=== PATIENT | male | born 1965 | race Caucasian/White ===

== ENCOUNTER 2016-10-27 09:04 | Emergency (ER) | payer OTHER ==
--- NOTE | 2016-10-27 16:05 | NUR ---
Received call from ER stating pt needs help. Pt was evaluated by PT. Pt states he just wants a wheelchair for home use. States his friends will carry him into the house. SWS faxed demographic and order for wheelchair to [facility]. Deny need for HHC.
--- NOTE | 2016-10-28 07:28 | CO ---
ADMIT: 10/27/2016 RM/LOC: ER [facility] MR#: [id number] [address] RENATE LOZOYA [address] [place] [address] Consultation SEX: M AGE: 51 : 1965 DATE OF CONSULTATION: 10/27/2016 ATTENDING PHYSICIAN: Coleman Carter CONSULTING PHYSICIAN: Ankur Rodrigues MD CHIEF COMPLAINT: Bilateral foot pain. HISTORY: A 51-year-old male, he fell off a ladder today. He has a lot of pain and swelling in his feet. He had x-rays confirming bilateral calcaneus fractures. No other major issues. No other medical problems. REVIEW OF SYMPTOMS: Otherwise negative. PAST MEDICAL HISTORY: Negative for diabetes. No smoking. Otherwise noncontributory. OBJECTIVE: He is awake, alert, and oriented, in no acute distress. Afebrile. Vital signs are stable. He is able to wiggle all of his toes. Sensation intact to light touch. Brisk capillary refill. He has a lot of swelling with a negative wrinkle sign bilaterally in his feet. X-rays, he has comminuted depressed calcaneus fractures bilaterally. ASSESSMENT: This 51-year-old male, bilateral calcaneus fractures. PLAN: Get a CT scans today before he leaves the ER. Put him into a bulky Rush splint bilaterally and I will have him follow up with Edwin JOSHI at [facility]. I have spoke with Lupillo Pineda and he said that he would be able to see him in clinic and evaluate him next week. I also gave him strict instructions for nonweightbearing, he elevate his legs as much as possible, keep his toes moving, and ice it down as much so we can get swelling down as quickly as possible before he sees Dr. Pineda. Also recommended an aspirin daily and pain medicine. Ankur Rodrigues MD/ kevin JOB #: [id number] CC: Coleman Carter, Attending Physician Alcira Albarado, Family Physician
--- NOTE | 2016-11-02 16:06 | ER ---
ADMIT: 10/27/2016 RM/LOC: [facility] MR#: [id number] [place], [place] [id number] [place] [address] Emergency Room Report SEX: M AGE: 51 : 1965 DATE: 10/27/2016 HISTORY OF PRESENT ILLNESS: Mr. Lozoya is a 51-year-old male, who was working today and fell from a ladder landed on his feet, swelling on bilateral ankles. REVIEW OF SYSTEMS: Negative. PAST MEDICAL HISTORY: Negative. IMMUNIZATIONS: Up-to-date. MEDICATION: He takes no medications on regular basis. ALLERGIES: HE IS ALLERGIC TO PENICILLIN. SOCIAL HISTORY: He drinks alcohol occasionally. PHYSICAL EXAMINATION: VITAL SIGNS: Blood pressure 131/68, with a heart rate of 64, respirations 16, temp is 96.9. GENERAL: He is alert, but moderately anxious. HEAD: Normocephalic and atraumatic. NECK: Supple. ABDOMEN: Nontender. SKIN: Warm and dry and intact. EXTREMITIES: Foot; see diagram in the T-sheet. There is some deformity at the bottom of his bilateral feet. Swelling in the ankles. He is unable to bear weight. NEUROLOGICAL: He is intact. VASCULAR: No compromise. LABORATORY DATA: No labs were done at this time. HOSPITAL COURSE: X-ray of the ankle and bilateral calcaneus shows bilateral ADMIT: 10/27/2016 RM/LOC: [facility] MR#: [id number] [address] [place], [place] [id number] [address] [place] [address] Emergency Room Report SEX: M AGE: 51 : 1965 ankle avulsion fracture fragment adjacent to the bilateral lateral malleolus, comminuted bilateral calcaneus fracture, soft tissue swelling about the bilateral ankles. Dr. Rodrigues, Orthopedics was contacted, he consulted and came into the emergency room to see patient and he ordered some CT to view the injury. He consulted with another Orthopedic doctor Dr. Pineda and he also put a splint on the patient's feet. The patient will be followed by Dr. Pineda in the future. The swelling really has to come down. Physical therapy was contacted per group social worker request. He will be evaluated and see what they needed at home for assistance. The patient will be discharged with instructions and medication for pain control. He is stable. IMPRESSION: Fractured heel bilaterally secondary to fall. JONG Ward / Coleman Carter MD / kevin JOB #: [id number] CC: Coleman Carter MD, Attending Physician Alcira Albarado MD, Family Physician
[2016-11-19] MEDS ORDERED: PERCOCET 10 DPS1 TAB PO (14:02)
[2016-11-19] MEDS ORDERED: LOVENOX DP40 MG/0.4 SQ (14:02)
[2016-11-19] MEDS ORDERED: PROVENTIL HFA6.7 GM IH (14:03)
== END 2016-10-27 19:40 | disposition home or self-care (01) ==
LOC: ER 09:04
PROC: 2W3LX1Z Immobilization of Right Lower Extremity using Splint (ICD-10-PCS; principal; 2016-10-27)
PROC: 2W3MX1Z Immobilization of Left Lower Extremity using Splint (ICD-10-PCS; principal; 2016-10-27)
DX: S92.002A Unspecified fracture of left calcaneus, initial encounter for closed fracture (principal); S92.001A Unspecified fracture of right calcaneus, initial encounter for closed fracture; Z88.0 Allergy status to penicillin; W11.XXXA Fall on and from ladder, initial encounter; Y92.69 Other specified industrial and construction area as the place of occurrence of the external cause

== ENCOUNTER 2016-11-17 06:59 | Observation (INO) | payer OTHER ==
[~2016-11-17] VITALS: Ht 185.4 cm; Wt 104.1 kg
--- NOTE | 2016-11-18 09:19 | OR ---
ADMIT: 11/17/2016 RM/LOC: [address] [facility] MR#: [id number] [address] RENATE LOZOYA [address] [place] [address] Operative/Delivery Room Report SEX: M AGE: 51 : 1965 SURGERY DATE: 11/17/2016 SURGEON: Glen Pineda DPM FRONT OFFICE SPEC: None. PREOPERATIVE DIAGNOSIS: Bilateral calcaneal fracture. POSTOPERATIVE DIAGNOSIS: Bilateral calcaneal fracture. PROCEDURE: Open reduction with internal fixation of bilateral calcaneal fracture. PATHOLOGY: None. ANESTHESIA: General. HEMOSTASIS: Pneumatic thigh tourniquet inflated to 300 mmHg. ESTIMATED BLOOD LOSS: 20 mL. MATERIALS USED: Two perimeter lateral locking plates with accompanying 3.5 nonlocking and locking screws. Seven screws in the right foot and 6 in the left. INJECTABLES: 20 mL of 0.5% Marcaine plain injected into the right postoperatively and 25 mL of 0.5% Marcaine plain in the left postoperatively. COMPLICATIONS: None. INDICATIONS FOR PROCEDURE: The patient is a 51-year-old male patient, who has presented to my office after having sustained an injury to the bilateral heels. We have undergone compression and attempted swelling reduction and after appropriate time frame, the patient has elected to undergo surgical correction of the fractures. The procedures were explained to the patient in detail. All questions were answered to his satisfaction. All risks, complications, and benefits of the procedure were explained to the patient and he has shown that he understands these by signing a consent form which was placed in the chart. His n.p.o. status has been confirmed. He has been medically cleared for surgery and no outcomes or guarantees have been given or implied. PROCEDURE IN DETAIL: Under mild sedation, the patient is brought to the operating room and following general induction, the patient was placed on the operating table in a lateral position with the right extremity elevated. A pneumatic thigh tourniquet was placed on the patient's right lower extremity. The foot was scrubbed, prepped, and draped in the usual aseptic manner. An Esmarch bandage used to exsanguinate the right lower extremity and the thigh tourniquet was inflated to 300 mmHg. Attention was then directed to the ADMIT: 11/17/2016 RM/LOC: 530 [facility] MR#: [id number] [id number] [address] RENATE LOZOYA [place] [address] [place] [address] Operative/Delivery Room Report SEX: M AGE: 51 : 1965 lateral aspect of the right heel where C-arm was used to help triangulate a lateral extensile incision which was made with a 10 blade through skin and subcutaneous tissue with care being taken to preserve and retract all vital neurovascular structures with any bleeders being cauterized and ligated as deemed necessary. The incision was deepened appropriately to the bone and a full-thickness flap was dissected proximally. No-touch technique is used with K-wires being placed into the distal fibula and the neck of the talus in order to help retract the skin. The fracture is identified. There were multiple fracture fragments, it was severely comminuted and the posterior facet of subtalar joint is severely depressed. Extensive time and effort was used to help reduce the fracture, put it in rectus alignment. Pins were used in the posterior calcaneus to help realign and reestablish appropriate angles of the calcaneus. Once we were satisfied with the reduction and it has been pinned temporarily, Pro-Stim bone graft was then placed after it has been prepared appropriately in a stepwise manner. It was placed to help fill our bone void. The lateral esparza then replaced on the lateral aspect of the calcaneus and a perimeter plate is bent appropriately and placed in order to help maintain our reduction and correction with seven 3.5 nonlocking and locking screws. The area was flushed multiple times with copious amounts normal sterile saline. The incision was closed in layers using 2-0 Vicryl, 4-0 Vicryl, and skin with marbin. The drain prior to closure was placed to help with any bloody drainage that might happen over the next day. The area was dressed with Adaptic, 4 x 4 gauze, ABD, cast padding and a well-padded aougn-tqz-ngyc posterior splint was placed in the patient's right lower extremity. The thigh tourniquet was deflated and immediate hyperemic response was noted to the right lower extremity at this time. The patient was then flipped into the lateral position so that the left leg is dorsal. The foot was again scrubbed, prepped, and draped in the usual aseptic manner. An Esmarch bandage used to exsanguinate the left lower extremity. The ankle tourniquet was inflated to 300 mmHg. Attention was then directed to the lateral aspect of the heel where again the C-arm was used to help triangulate our lateral extensile incision, it was made with a 10 blade through skin and subcutaneous tissue with care being taken to preserve and retract all vital neurovascular structures. The structures with any bleeders being cauterized and ligated as deemed necessary. The incision was deepened appropriately and again a full-thickness flap is retracted proximally, again with a no-touch technique and K-wire was being driven through the distal fibula and neck of the talus and bent in order to help hold our retraction of our skin flap. The lateral wall was then removed and the fracture was identified and reduced appropriately and it is pinned temporarily and again Pro-Stim from [employer] as a bone filler was used to help fill our bone void backup materials. The lateral wall was then replaced. A perimeter plate was then placed on the lateral aspect of the calcaneus with six 3.5 nonlocking and locking screws. A drain was placed ADMIT: 11/17/2016 RM/LOC: 530 [facility] MR#: [id number] [id number] [address] RENATE LOZOYA [address] [place] [address] Operative/Delivery Room Report SEX: M AGE: 51 : 1965 appropriately again on the left as well as on the right and incision was closed in layers using 2-0 Vicryl, 4-0 Vicryl and skin marbin. The both legs were injected with 0.5% Marcaine plain postoperatively. The area was dressed with Adaptic, 4 x 4 gauze, Elmer, and Coban. A well-padded [id number] posterior splint was placed on the patient's left lower extremity as well. The thigh tourniquet was deflated and immediate hyperemic response was noted to the left lower extremity. The patient tolerated the procedure and anesthesia well and was transferred from the OR to the recovery room with vital signs stable and neurovascular status intact to the bilateral lower extremities. The patient will be admitted to the floor for 23 hour observation with appropriate pain management and all orders were placed in the chart and given to the patient's family in detail. Glen Pineda DPM/ kevin JOB #: [id number] CC: Glen Pineda, Attending Physician Alcira Albarado, Family Physician
[2016-11-19] MEDS ORDERED: PERCOCET 10 DPS1 TAB PO (14:02)
[2016-11-19] MEDS ORDERED: LOVENOX DP40 MG/0.4 SQ (14:02)
[2016-11-19] MEDS ORDERED: PROVENTIL HFA6.7 GM IH (14:03)
== END 2016-11-18 17:33 | disposition home or self-care (01) ==
LOC: WOR 06:59 → SSS 10:36 → EDSTATUS 14:16 → SSS 14:18 → 5MS 15:34
PROVIDERS: ADMIT Podiatrist
PROC: 0QSL04Z Reposition Right Tarsal with Internal Fixation Device, Open Approach (ICD-10-PCS; principal; 2016-11-17)
PROC: 0QSM04Z Reposition Left Tarsal with Internal Fixation Device, Open Approach (ICD-10-PCS; principal; 2016-11-17)
DX: S92.002A Unspecified fracture of left calcaneus, initial encounter for closed fracture (principal); S92.001A Unspecified fracture of right calcaneus, initial encounter for closed fracture; E66.9 Obesity, unspecified; Z68.34 Body mass index [BMI] 34.0-34.9, adult; Z87.891 Personal history of nicotine dependence; J30.2 Other seasonal allergic rhinitis; Z88.0 Allergy status to penicillin; W11.XXXA Fall on and from ladder, initial encounter